=== PATIENT | female | born 1945 | race Caucasian/White ===

== ENCOUNTER 2024-07-09 09:04 | Emergency (ER) | payer MEDICARE, SELFPAY ==
[2024-07-09 09:11] VITALS: BP 166/82; PULSE 94; TEMP 36.8; O2SAT 96; BMI 29.1
--- NOTE | 2024-07-09 09:45 | XR_ITS ---
The [address] [address] Patient Name: SIMON ORTIZ MRN: [id number] date: 1945 Sex: F Assigned Patient Location: ER Current Patient Location: ED.MAIN Accession/Order Number: [id number] Exam Date: 07/09/2024 09:51 Report Date: 07/09/2024 10:14 At the request of: ARMANDO CABRALES Procedure: XR wrist RT min 3V PROCEDURE: XR wrist RT min 3V HISTORY: pain COMPARISON: None. FINDINGS: BONES:Subchondral sclerosis and marked joint space narrowing of the first carpal-metacarpal joint with periarticular degenerative osteophytes. No fracture or dislocation. SOFT TISSUES:Calcium deposition within the triangular fibrocartilage. No radiopaque foreign body. EFFUSION:None visible. OTHER: Negative. XR/XR wrist RT min 3V IMPRESSION: 1. No appreciable acute abnormality. 2. Chronic degenerative changes. Electronically authenticated by: BROOKE DE SANTIAGO Date: 07/09/2024 10:14
--- NOTE | 2024-07-09 09:46 | ED.GENADUL1 ---
HPI HPI - General Adult General Chief complaint: Extremity Problem, Nontraumatic Stated complaint: SWOLLEN HAND Time Seen by Provider: 07/09/24 09:45 History of Present Illness HPI narrative: Patient is a 70-year-old female who is presenting with 2-day history of right wrist pain. Patient has no known injury. Patient is right-hand dominant. 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 Patient has been using different soaks at home to try to help with the pain. Patient can only take Tylenol, she cannot have anti-inflammatories secondary to history of lymphoma. Patient has no fever, chills, nausea, vomiting. Patient did have more swelling yesterday, swelling has improved today. Patient is at bedside. Patient [id number]. Patient has mild pain to the right forearm. No other injury, no other acute complaints. No redness, no signs of gouty arthritis. No obvious deformity. All systems are negative except as noted/marked. All systems reviewed and otherwise negative. Nurses note and vital signs reviewed and patient is not hypoxic. General: The patient appears well and in no apparent distress. Patient is resting comfortably on cart. Patient is not toxic, lethargic, or listless Skin: Warm, dry, no pallor noted. There is no rash noted. No petechiae, purpura. Head: Normocephalic, atraumatic Eye: Normal conjunctiva, no drainage, EOMI. PERRL Ears, Nose, Mouth, and Throat: oral mucosa is moist. Nares patent. Mouth without vesicles. Cardiovascular: Regular Rate and Rhythm, no murmur, gallop, rub Respiratory: Patient is in no distress, no accessory muscle use, lungs are clear to auscultation, no wheezing, rales or rhonchi Back: non-tender, GI: no tenderness Musculoskeletal: Patient has full range of motion of all of the extremities. Patient has mild swelling to right wrist, no redness, no erythema. Patient has no pain with light palpation to the right wrist. Patient has full range of motion of right shoulder, right elbow with no new pain. Patient has mild chronic right shoulder pain. Patient has no bony palpation to the 5 metacarpal bones of the right hand, full range of motion of right hand with no difficulty. Patient is guarded with flexion extension abduction adduction of right wrist. Otherwise no motor, sensory, or focal neurological deficits Neurological: A&O x4, normal speech Psychiatric: Cooperative Related Data Previous Rx's ?Medication ?Instructions ?Recorded tramadol 50 mg tablet 50 mg PO Q8H PRN pain #14 tabs 07/09/24 Allergies Allergy/AdvReac Type Severity Reaction Status Date / Time No Known Drug Allergies Allergy Verified 07/09/24 09:11 Opioid HPI Opioid Management Most Recent Opioid Data: Last Pain Scale 5 07/09/24 09:57 07/09/24 Last MAR Pain Assessment 07/09/24 09:57 PFSH PFSH Social History Little interest or pleasure in doing things: not at all Feeling down, depressed, or hopeless: not at all Exam Constitutional Vital Signs, click to edit/add: Last Vital Signs Temp 98.2 F 07/09/24 09:11 Pulse 94 H 07/09/24 09:11 Resp 18 07/09/24 09:11 BP 166/82 H 07/09/24 09:11 Pulse Ox 96 07/09/24 09:11 O2 Del Method Room Air 07/09/24 09:11 Course Vital Signs Vital signs: Vital Signs Temperature 98.2 F 07/09/24 09:11 Pulse Rate 94 H 07/09/24 09:11 Respiratory Rate 18 07/09/24 09:11 Blood Pressure 166/82 H 07/09/24 09:11 Pulse Oximetry 96 07/09/24 09:11 Oxygen Delivery Method Room Air 07/09/24 09:11 Temperature 98.2 F 07/09/24 09:11 Pulse Rate 94 H 07/09/24 09:11 Respiratory Rate 18 07/09/24 09:11 Blood Pressure 166/82 H 07/09/24 09:11 Pulse Oximetry 96 07/09/24 09:11 Oxygen Delivery Method Room Air 07/09/24 09:11 Medical Decision Making MDM Narrative Medical decision making narrative: Patient has no acute bony abnormality on right wrist x-ray. No fracture dislocation or acute abnormality. Procedure note: Patient was placed in a right Velcro wrist splint. Splint was assisted with . the patient was neurovascularly intact before and after the splint was placed. the affected bones/injured area had proper alignment in a splint. Education on splint care at home was given at bedside. Patient and family have no questions at discharge. Patient states that she can take Tylenol only for her pain. She cannot use anti-inflammatories secondary to lymphoma history. Patient was given prescription for Ultram as well. Education on RICE, using wrist splint, following up with PCP was discussed. No questions discharge. Discharge Plan Discharge Chief Complaint: Extremity Problem, Nontraumatic Clinical Impression: Right wrist pain Patient Disposition: Home, Self-Care Time of Disposition Decision: 10:09 Condition: Fair Prescriptions / Home Meds: New tramadol 50 mg tablet 50 mg PO Q8H PRN (Reason: pain) Qty: 14 0RF Print Language: Hungarian Instructions: Wrist Injury (ED), Splint Care (ED), P.R.I.C.E. Treatment (ED), Swollen Joint (ED) Additional Instructions: Ice 20 minutes on, 10 minutes off. Do not use heat. Wear wrist splint at all times and x-ray to 5 days besides ice and shower. On Friday or Friday, start performing wrist exercises, follow-up with PCP You may use Ultram and Tylenol together to help with pain, most importantly using ice. Referrals: SID REESE [Primary Care Provider] - 1 week
[2024-07-09] MEDS: TRAMADOL HCL 50 MG TABLET PO (09:57)
== END 2024-07-09 10:22 | disposition home or self-care (01) ==
PROVIDERS: Emergency Provider Emergency Medicine; PCP Nurse Practitioner Family
DX: M25.531 Pain in right wrist (principal); C82.90 Follicular lymphoma, unspecified, unspecified site
CPT/HCPCS: 73110; 99283

== ENCOUNTER 2025-05-12 08:04 | Outpatient (OUT) | payer MEDICARE, SELFPAY ==
--- OUTSIDE RECORDS SUMMARY | 2025-05-12 08:10 | XMS_ITS | Clinical Summary ---
Author Organization [facility] Address [address] [place] [address] Phone Care Team Providers Care Store Operations Associate Name Role Phone Unavailable Primary Care Provider Unavailabl e Social History Tobacco UseTypesPacks/DayYears UsedDateSmoking Tobacco: Never Assessed CommentsUnknownSex and Gender InformationValueDate RecordedSex Assigned at Not on fileLegal TvdXzudny63/13/2023 2:36 PM ESTGender IdentityNot on fileSexual OrientationNot on file Plan of Treatment Health MaintenanceDue DateLast DoneCommentsLipid Panel1945Yearly Adult Dqpcufue87[birth year]22/1946Hepatitis C Azqzfrtwz91/22/1964DTaP/Tdap/Td Vaccines (1 - Tdap)12/15/1967Pneumococcal Vaccine (1 of 1 - PCV)12/15/1995Zoster Vaccines (1 of 2)12/15/1995Bone Density Scan2010RSV High Risk: (Elderly (60+) or Population) (1 - 1-dose 75+ series)2020Influenza Vaccine (#1) 2024OVID-19 Vaccine (1 - season)2025HIB VaccinesAged OutNo longer eligible based on patient's age to complete this topicHPV VaccinesAged OutNo longer eligible based on patient's age to complete this topicHepatitis A VaccinesAged OutNo longer eligible based on patient's age to complete this topic Hepatitis B VaccinesAged OutNo longer eligible based on patient's age to complete this topicIPV VaccinesAged OutNo longer eligible based on patient's age to complete this topicMeningococcal VaccineAged OutNo longer eligible based on patient's age to complete this topicRotavirus VaccinesAged OutNo longer eligible based on patient's age to complete this topic
--- OUTSIDE RECORDS SUMMARY | 2025-05-12 08:10 | XMS_ITS | Clinical Summary ---
Author Organization [facility] Address [address] [place] [id number] Care Team Providers Care Food Beverage Manager Name Role Phone Unavailable Primary Care Provider Unavailabl e Social History Tobacco UseTypesPacks/DayYears UsedDateSmoking Tobacco: Never Assessed CommentsUnknownSex and Gender InformationValueDate RecordedSex Assigned at Not on fileLegal UefRadusq11/03/2023 11:30 AM ESTGender IdentityNot on file Sexual OrientationNot on file Plan of Treatment Not on file Insurance * Guarantor: Kerline Sarkar TypeRelation to PatientDate of BirthPhone Billing AddressPersonal/HlyvauPrmy91/22/1946 na (Work) [address] [place] [phone]
--- OUTSIDE RECORDS SUMMARY | 2025-05-12 08:10 | XMS_ITS | Clinical Summary ---
Author Organization [facility] Address [address] [place] [address] Care Team Providers Care Greenhouse Laborer Name Role Phone Manda Zamorano NP Primary Care Provider Kristina Manjarrez MD Unavailable Kevin Yousif DO Unavailable Allergies No known active allergies Medications MedicationSigDispense QuantityRefillsLast FilledStart DateEnd DateStatus vcbjcrjk-uiqnuqwqer-fydbijloc (Neosporin Original) ointment Indications:Cystocele with rectoceleApply topically 2 (two) times a day 15 g ctive hydroCHLOROthiazide (Microzide) 12.5 MG capsule Take 12.5 mg by mouth Daily11/10/2023ctive acetaminophen (Tylenol) 500 MG tablet Take by mouth every 6 (six) hours if needed for mild pain12/19/2023ctive levothyroxine (Synthroid, Levoxyl) 100 MCG tablet Indications:Status post partial thyroidectomyTake 1 tablet (100 mcg) by mouth in the morning. Take before meals. 90 tablet 5Active Active Problems ProblemNoted DateDiagnosed WtcqQicxikydoktqra92/25/4757Ulucgahaklh34/25/2024 Situational aajsbnwybh19/25/2024cute pain of left knee08/13/2023-cell lymphoma 08/13/2023ervical qlpbbxkzyqaajxp88/20/2024yst of ovary08/13/2023Midline yuwqmpirt86/20/2024Nontoxic single thyroid wivelo9108/13/2023Unilateral primary osteoarthritis, left knee08/13/2023 Resolved Problems ProblemNoted DateDiagnosed DateResolved DateAcute UTI06one pain due to granulocyte colony stimulating serzqr61 Chemotherapy-induced xnsgewuoelu36oordination of complex care Encounter for antineoplastic jdvqdaoipqmcq43/10/2024 11/03/20235779Jnzbwuxsmis84Indeterminate pulmonary nodules Lumbar painostmenopausal vaginal vwpmyasm29rimary gdptwspwtxug41 Retroperitoneal ugcxgkfgsbmmmme38Thyroid nodule incidentally noted on imaging study Encounters DateTypeDepartmentCare UhsnByuaawxvctq94/10/2025External Result Encounter [facility] Unsolicited Kristina Manjarrez MD 04/04/2025External Result Encounter [facility] Unsolicited Kristina Manjarrez MD 04/04/2025External Result Encounter [facility] Unsolicited Kristina Manjarrez MD 02/25/2025 5:00 PM EDTAncillary Procedure [facility] [address] [place] [phone] Encounter for screening mammogram for malignant neoplasm of fzkjfa9302/25/2025 Vrrsml4802/24/2025Travelfrom Last 3 Months Immunizations ImmunizationAdministration DatesNext DueInfluenza Whole03/07/2010Influenza, High Dose Seasonal, Preservative Free04/16/2024 Family History Medical HistoryRelationNameCommentsHypertensionFatherRelationNameStatusComments DaughterAlive2 daughtersFatherDeceasedMotherDeceased Social History Tobacco UseTypesPacks/DayYears UsedDateSmoking Tobacco: NeverSmokeless Tobacco: Never Tobacco Cessation:Counseling Given: Not Answered Comments:Denies alcohol use, substance abuse , tobacco abuse Alcohol UseStandard Drinks/WeekCommentsNever0 (1 standard drink = 0.6 oz pure alcohol)caffeine intake : noneAUDIT-CAnswerDate RecordedQ1: How often do you have a drink containing alcohol?Never09/09/2023Q2: How many drinks containing alcohol do you have on a typical day when you are drinking?Patient does not drink09/09/2023Q3: How often do you have six or more drinks on one occasion? Never4PHQ-2AnswerDate RecordedPatient Health Questionnaire-2 Score0 4CommentsNoSex and Gender InformationValueDate RecordedSex Assigned at BirthNot on fileLegal KusAwdcvk12/15/2023 8:24 PM EDTGender Identity Not on fileSexual OrientationNot on file Last Filed Vital Signs Vital SignReadingTime TakenCommentsBlood Rdragalh020/8602/09/2025 10:51 AM EDT Pulse--Temperature--Respiratory Rate--Oxygen Saturation--Inhaled Oxygen Concentration--Xmetlh87.8 kg (165 lb)02/09/2025 10:51 AM MDKCfgrcj242 cm (5' 3 ) 02/09/2025 10:51 AM EDTBody Mass Index29.23002/09/2025 10:51 AM EDT Plan of Treatment DateTypeDepartmentCare Team (Latest Contact Info)Pxddqibbexh96/05/2026 10:00 AM EDTOffice Visit NOMElida CHACKO [address] [facility] [address] [place] [address] Stu Tavarez DO [address] [facility] [address] [place] [address] Health MaintenanceDue DateLast DoneCommentsPneumococcal Vaccine: 65+ Years (1 of 1 - PCV)12/15/1995COVID-19 Vaccine (2024- season), 04/17/2021, 08/15/2020, Additional history existsInfluenza Vaccine (#1) 5106/16/2023, 03/07/2010 Procedures Procedure NamePriorityDate/TimeAssociated DiagnosisCommentsCT ABDOMEN PELVIS W IV MYQJVMIQ19/10/2025 4:41 PM EST LACTATE EPQEVIGUZAVHLBXKU28/10/2025 9:42 AM EST COMPREHENSIVE METABOLIC QUSVFWEKJ77/10/2025 9:42 AM EST CBC WITH AUTO QHPXXWCSMSNZYavycxt03/10/2025 9:42 AM EST BI MAMMOGRAM SCREENING TOMOSYNTHESIS ZTUVGVVSVIfkinip56/03/2025 5:06 PM EDT Encounter for screening mammogram for malignant neoplasm of breast from Last 3 Months Results * CT abdomen pelvis w IV contrast (04/04/2025 4:41 PM EST)Anatomical Region LateralityModalityBody, Pelvis, AbdomenComputed TomographySpecimen (Source) Anatomical Location / LateralityCollection Method / VolumeCollection Time Received Time04/04/2025 4:41 PM EST Impressions 04/04/2025 4:56 PM EST No acute findings ?? PRELIMINARY RESULTS: None given ? Impression dictated by: Ko Ruth M.D. ??04/04/2025 4:54 PM ? Dictation Location: RADIO-PC-16 ? Transcribed By: ? PWS ?04/04/251653 ? Dictated By: ?Ko Ruth DO ?04/04/25 1641 ? Signed By: <Electronically signed by Ko Ruth, DO in OV> ? 04/04/25 1654 Narrative 04/04/2025 4:56 PM EST [facility] ?[facility] [place] ?[address] ? [place] [address] ? CT Scan Report ? Signed ? Patient: Mello,Kerline L ?MR#: [id number] ?? [id number] ? : 1945 ?Acct:[id number] ? Age/Sex: 79 / F ?ADM Date: 04/04/25 ? Loc: XT ?Room: ?Type: REG RCR ?? Attending Dr: Kristina Manjarrez MD ?? Copies to: Kristina Manjarrez MD ? Ordering Provider: Kristina Manjarrez MD ?? Date of Service: 04/04/25 ?? CT/CT abdomen pelvis w con: C85.10 - Unspecified B- cell lymphoma, unspecified site ?? ([id number]) CT/CT chest w con: C85.10 - Unspecified B-cell lymphoma, unspecified site ? CT Chest, Abdomen and Pelvis with contrast ? TECHNIQUE: Axial imaging with 2-D reconstruction. The CT exam was performed using one or more the following dose reduction techniques: Automated exposure control, adjustment of the MA and/or Kv according to patient size, or use of the iterative reconstruction technique. ? History: Restaging B-cell lymphoma ? COMPARISON: 11/10/2024 ? THYROID: Left Thyroidectomy. ??Thyroid nodularity. ? AIRWAY: Central airway is patent. ? ESOPHAGUS: Esophagus normal course and caliber. ? HEART: Heart is not enlarged. ? PERICARDIAL EFFUSION: None ? CORONARY ARTERY CALCIFICATION: None ? MEDIASTINUM: Nonenlarged mediastinal lymph nodes identified. ? HILAR REGION: No hilar mass or adenopathy is seen. ? THORACIC AORTA: No thoracic aortic aneurysm or dissection. ??No atherosclerosis ? LUNG INTERSTITIUM: No infiltrate or congestion identified. ?? Basilar linear atelectasis/scarring ? PLEURAL EFFUSION No pleural effusion identified. ? PNEUMOTHORAX: No pneumothorax seen. ? LUNG NODULE: Similar basilar nodularity ? CHEST WALL: No chest wall abnormality seen. ??The bony chest intact. ? LIVER: No hepatic mass or intrahepatic biliary ductal dilatation is identified. ??Normal density of the liver parenchyma identified. ? GALLBLADDER: Cholelithiasis ? BILE DUCTS: No biliary duct dilatation identified. ? SPLEEN: Normal ? PANCREAS: Unremarkable ? ADRENAL GLANDS: The adrenal glands are unremarkable. ? KIDNEYS: Right renal cyst. ??Focal scarring. ??No hydronephrosis. ? ABDOMINAL AORTA: ??The abdominal aorta is normal. ?? Small volume of atherosclerosis. ? RETROPERITONEUM: ??No significant retroperitoneal abnormalities identified. ? STOMACH:Nondistended ? SMALL BOWEL: The small bowel loops are nondistended. ? APPENDIX: Appendectomy ? COLON: There is no colitis or diverticulitis. ? URINARY BLADDER: Urinary bladder is unremarkable. ? REPRODUCTIVE STRUCTURES: Hysterectomy ? FREE AIR: None ? FREE FLUID: None ? ABDOMINAL WALL: ??No subcutaneous soft tissue abnormality identified. ? INGUINAL HERNIA: None ? BONES:Similar lumbar degeneration ? CT/CT chest w con ?? Procedure Note Radiology, RadiologistMD - 04/04/2025 [facility] [place] [address] [place] [address] CT Scan Report Signed Patient: Kerline Sarkar LMR#: [id number] : 1945cct:[id number] Age/Sex: 79 / FADM Date: 04/04/25 Loc: XT [facility] Attending Dr: Kristina Manjarrez MD Copies to: Kristina Manjarrez MD Ordering Provider: Kristina Manjarrez MD Date of Service: 04/04/25 CT/CT abdomen pelvis w con: C85.10 -Unspecified B- cell lymphoma, unspecified site ([id number]) CT/CT chest w con: C85.10 - Unspecified B-cell lymphoma, unspecified site CT Chest, Abdomen and Pelvis with contrast TECHNIQUE: Axial imaging with 2-D reconstruction. The CT exam wasperformed using one or more the following dose reduction techniques: Automated exposure control,adjustment of the MA and/or Kv according to patient size, or use of the iterative reconstructiontechnique. History: Restaging B-cell lymphoma COMPARISON: 11/10/2024 THYROID: Left Thyroidectomy. Thyroid nodularity. AIRWAY: Central airway is patent. ESOPHAGUS: Esophagus normal course and caliber. HEART: Heart is not enlarged. PERICARDIAL EFFUSION: None CORONARY ARTERY CALCIFICATION: None MEDIASTINUM: Nonenlarged mediastinal lymph nodes identified. HILAR REGION: No hilar mass or adenopathy is seen. THORACIC AORTA: No thoracic aortic aneurysm or dissection. Noatherosclerosis LUNG INTERSTITIUM: No infiltrate or congestion identified. Basilarlinear atelectasis/scarring PLEURAL EFFUSION No pleural effusion identified. PNEUMOTHORAX: No pneumothorax seen. LUNG NODULE: Similar basilar nodularity CHEST WALL: No chest wall abnormality seen. The bony chest intact. LIVER: No hepatic mass or intrahepatic biliary ductal dilatation isidentified. Normal density of the liver parenchyma identified. GALLBLADDER: Cholelithiasis BILE DUCTS: No biliary duct dilatation identified. SPLEEN: Normal PANCREAS: Unremarkable ADRENAL GLANDS: The adrenal glands are unremarkable. KIDNEYS: Right renal cyst. Focal scarring. No hydronephrosis. ABDOMINAL AORTA: The abdominal aorta is normal. Small volume ofatherosclerosis. RETROPERITONEUM: No significant retroperitoneal abnormalities identified. STOMACH:Nondistended SMALL BOWEL: The small bowel loops are nondistended. APPENDIX: Appendectomy COLON: There is no colitis or diverticulitis. URINARY BLADDER: Urinary bladder is unremarkable. REPRODUCTIVE STRUCTURES: Hysterectomy FREE AIR: None FREE FLUID: None ABDOMINAL WALL: No subcutaneous soft tissue abnormality identified. INGUINAL HERNIA: None BONES:Similar lumbar degeneration CT/CT chest w con IMPRESSION: No acute findings PRELIMINARY RESULTS: None given Impression dictated by: Ko Ruth M.D. 04/04/2025 4:54 PM Dictation Location: [place] [address] Transcribed By: [facility] 04/04/25 2407 Dictated By: Ko Ruth DO 04/04/25 1641 Signed By: <Electronically signed by Ko Ruth, DO in OV> 04/04/25 1654 Authorizing ProviderResult TypeResult StatusKristina Manjarrez MDIMKathrine CT PROCEDURESFinal Result * (ABNORMAL) CBC auto differential (04/04/2025 9:42 AM EST)ComponentValueRef RangeTest MethodAnalysis TimePerformed AtPathologist SignatureWBC3.7(L)3.8 - 11.6 [CFU]/mL04/04/2025 10:04 AM [facility] CtrUNCORRECTED WHITE BLOOD COUNT3.7(L)3.8 - 11.6 10*3/uL04/04/2025 10:04 AM [facility] CtrRBC4.273.60 - 5.00 10*6/uL04/04/2025 10:04 AM [facility] UwcBWOWQUUTKA96.311.8 - 15.4 g/dL04/04/2025 10:04 AM [facility] MtmGMZGTTJVNV76.534.0 - 46.4 %04/04/2025 10:04 AM [facility] DpbRMO33.180 - 100 fL04/04/2025 10:04 AM [facility] GfkVUM07.224.7 - 34.3 pg04/04/2025 10:04 AM [facility] MipEXNT53.632.0 - 35.0 g/dL04/04/2025 10:04 AM [facility] CtrRED CELL DISTRIBUTION WIDTH, RDW13.411.9 - 15.3 %04/04/2025 10:04 AM [facility] CtrPLATELET ZGTGQ879632 - 450 10*3/uL04/04/2025 10:04 AM [facility] CtrMEAN PLATELET VOLUME, MPV9.76.3 - 10.7 fL04/04/2025 10:04 AM [facility] CtrNEUTROPHILS, %60.9. %04/04/2025 10:04 AM [facility] LYMPHOCYTES, %20.6. %04/04/2025 10:04 AM [facility] MONOCYTE/MACROPHAGE, %13.3. %04/04/2025 10:04 AM [facility] CtrEOSINOPHILS, %4.8. %04/04/2025 10:04 AM [facility] BASOPHILS, %0.4. %04/04/2025 10:04 AM [facility] CtrNRBC0.1 0 - 0.5 /100{WBC}04/04/2025 10:04 AM [facility] NEUTROPHILS2.21.8 - 7.7 10*3/uL04/04/2025 10:04 AM [facility] CtrLYMPHOCYTES0.8(L)1.00 - 4.8 10*3/uL04/04/2025 10:04 AM [facility] CtrMONOCYTES0.50.0 - 0.8 10*3/uL04/04/2025 10:04 AM [facility] CtrEOSINOPHILS0.20.0 - 0.45 10*3/uL04/04/2025 10:04 AM [facility] CtrBASOPHILS0.00.0 - 0.2 10*3/uL04/04/2025 10:04 AM [facility] CtrSpecimen (Source)Anatomical Location / LateralityCollection Method / VolumeCollection TimeReceived TimeBlood (Blood)04/04/2025 9:42 AM EST04/04/2025 9:47 AM EST Narrative Authorizing ProviderResult TypeResult StatusKristina Manjarrez MDLAB BLOOD ORDERABLES Final ResultPerforming OrganizationAddressCity/State/ZIP CodePhone Number [facility] [address] [place] [address], [facility] [address] [place] [address] * Lactate dehydrogenase (04/04/2025 9:42 AM EST)ComponentValueRef RangeTest MethodAnalysis TimePerformed AtPathologist SignatureLDH LACTATE DEHYDROGENASE 489444 - 271 U/L106/04/2024 10:20 AM [facility] CtrSpecimen (Source)Anatomical Location / LateralityCollection Method / VolumeCollection TimeReceived TimeOtherTopography unknown / Avwwrjm6404/04/2025 9:42 AM EST 04/04/2025 9:47 AM EST Narrative Authorizing ProviderResult TypeResult StatusKristina Manjarrez MDLAB BLOOD ORDERABLES Final ResultPerforming OrganizationAddressCity/State/ZIP CodePhone Number [facility] [address] [place] [address], [facility] [address] [place] [address] * (ABNORMAL) Comprehensive metabolic panel (04/04/2025 9:42 AM EST)Component ValueRef RangeTest MethodAnalysis TimePerformed AtPathologist SignatureGlucose 9370 - 100 mg/dL04/04/2025 10:20 AM [facility] CtrComment: Random Glucose Reference Range is dependent on time and content of last meal. Glucose of more than 200 mg/dL in a nonstressed, ambulatory subject supports the diagnosis of Diabetes Mellitus. ADA recommended reference range FKS506 - 25 mg/dL04/04/2025 10:20 AM [facility] CtrCREATININE 0.760.60 - 1.20 mg/dL04/04/2025 10:20 AM [facility] ESTIMATED GFR>60. 10:20 AM [facility] TjxXnqkpk620 136 - 145 mmol/L106/04/2024 10:20 AM [facility] CtrPotassium, Bld3.53.5 - 5.1 mmol/L106/04/2024 10:20 AM [facility]tr Xvkbfwis56402 - 107 mmol/L106/04/2024 10:20 AM [facility]tr Carbon Tnjrtui25.021.0 - 31.0 mmol/L106/04/2024 10:20 AM [facility] CtrAnion Gap11.56.0 - 15. 10:20 AM [facility] CtrCalcium9.68.6 - 10.3 mg/dL04/04/2025 10:20 AM [facility] CtrTOTAL PROTEIN6.1(L)6.4 - 8.9 g/dL04/04/2025 10:20 AM [facility] CtrALBUMIN LEVEL4.33.5 - 5.7 g/dL04/04/2025 10:20 AM [facility] CtrGLOBULIN1.8g/dL04/04/2025 10:20 AM [facility] CtrALBUMIN/GLOBULIN RATIO2.411 10:20 AM [facility] CtrBILIRUBIN,TOTAL0.70.3 - 1.0 mg/dL04/04/2025 10:20 AM [facility] CtrASPARTATE AMINO UPFPFXHPZLM6591 - 39 U/L106/04/2024 10:20 AM [facility] CtrALANINE ACAGXOKOAEZORGVF298 - 52 U/L 04/04/2025 10:20 AM [facility] CtrALKALINE NASVBGMBXCA567(H) 34 - 104 U/L106/04/2024 10:20 AM [facility] CtrCREATININE CLR CALC YHMWMORU57.5304/04/2025 10:20 AM [facility] CtrSpecimen (Source)Anatomical Location / LateralityCollection Method / VolumeCollection TimeReceived TimeOtherTopography unknown / Ebzrpam1404/04/2025 9:42 AM EST 04/04/2025 9:47 AM EST Narrative Authorizing ProviderResult TypeResult StatusKristina Manjarrez MDLAB BLOOD ORDERABLES Final ResultPerforming OrganizationAddressCity/State/ZIP CodePhone Number [facility] [address] [place] [address], [facility] [address] [place] [id number] * Bilateral screening mammogram with tomosynthesis (02/25/2025 5:06 PM EDT) Anatomical RegionLateralityModalityBreastBilateralMammographySpecimen (Source) Anatomical Location / LateralityCollection Method / VolumeCollection Time Received Time02/28/2025 10:16 AM EDT Impressions 02/28/2025 10:20 AM EDT Impression: No specific evidence of malignancy seen in either breast. BIRADS 2 - Benign Findings DENSITY: The breasts are almost entirely fatty. FOLLOW-UP: Routine Screening Mammogram Board Certified Radiologists. ??Accredited by the ACR and FDA. MAMMOGRAPHY IS VERY IMPORTANT TO YOUR HEALTH. ??THE [employer] GUIDELINES RECOMMEND THAT WOMEN 40 YEARS OF AGE AND OLDER SHOULD HAVE A MAMMOGRAM EVERY YEAR. A REMINDER LETTER WILL BE SENT AT THE APPROPRIATE TIME. ?? ELECTRONICALLY SIGNED BY: Serg Palacios M.D. Narrative 02/28/2025 10:20 AM EDT Examination: BI MAMMOGRAM SCREENING TOMOSYNTHESIS BILATERAL Clinical History: screening Technique: Screening digital mammography study of both breasts was performed with 2-D and 3-D tomosynthesis imaging. Study was compared to the prior exam dated 10/15/2023. Findings: There is no evidence of interval dominant spiculated mass, grouped microcalcifications, or skin thickening which would be suggestive of malignancy. ?? Mild scattered benign-appearing calcifications including vascular calcifications are noted bilaterally. Procedure Note Serg Palacios MD - 02/28/2025 Examination: BI MAMMOGRAM SCREENING TOMOSYNTHESIS BILATERAL Clinical History: screening Technique: Screening digital mammography study of both breasts wasperformed with 2-D and 3-D tomosynthesis imaging. Study was compared tothe prior exam dated 10/15/2023. Findings: There is no evidence of interval dominant spiculated mass,grouped microcalcifications, or skin thickening which would be suggestiveof malignancy. Mild scattered benign-appearing calcifications including vascularcalcifications are noted bilaterally. IMPRESSION: Impression: No specific evidence of malignancy seen in either breast. BIRADS 2 - Benign Findings DENSITY: The breasts are almost entirely fatty. FOLLOW-UP: Routine Screening Mammogram Board Certified Radiologists. Accredited by the ACR and FDA. MAMMOGRAPHY IS VERY IMPORTANT TO YOUR HEALTH. THE [employer] GUIDELINES RECOMMEND THAT WOMEN 40 YEARS OF AGE AND OLDER SHOULD HAVE AMAMMOGRAM EVERY YEAR. A REMINDER LETTER WILL BE SENT AT THE APPROPRIATE TIME. ELECTRONICALLY SIGNED BY: Serg Palacios M.D. Authorizing ProviderResult TypeResult StatusRichard A Visci DOIMG BI PROCEDURES Final Result from Last 3 Months Insurance Care Teams Team MemberRelationshipSpecialtyStart DateEnd Date Manda Zamorano NP [address] [place] [address] [place] [address] PCP - GeneralFamily Medicine08/13/23 Kristina Manjarrez MD [address] [place] [address] Referring PhysicianOncology11/03/23 Kevin Yousif DO [address] [place] [address] Otolaryngology11/03/23
[2025-05-12 10:35] LABS: Cholesterol 269 mg/dL (<=200); HDL Cholesterol 54 mg/dL (40-60); TSH W/ REFLEX FT4 0.335 uIU/mL (0.358-3.740); Triglycerides 110 mg/dL (<=150); VLDL CHOLESTEROL 22.0 mg/dL
== END 2025-05-12 08:05 | disposition home or self-care (01) ==
LOC: LAB 08:07
PROVIDERS: PCP Nurse Practitioner Family; Visit Provider Nurse Practitioner Family
DX: E03.9 Hypothyroidism, unspecified (principal); E78.5 Hyperlipidemia, unspecified
CPT/HCPCS: 36415; 80061; 84439; 84443